=== PATIENT | female | born 1960 | race Caucasian/White ===

== ENCOUNTER 2020-11-29 10:41 | Emergency (ER) | payer MEDICAID ==
[~2020-11-29] VITALS: Ht 154.9 cm; Wt 85.5 kg
[~2020-11-29 10:41] MED LIST: AZIT250T PO
[2020-11-29 12:22] VITALS: BP 149/101
[2020-11-29] MEDS ORDERED: PRED50TA PO (13:44)
== END 2020-11-29 13:58 | disposition home or self-care (01) ==
LOC: ER 10:42
DX: J06.9 Acute upper respiratory infection, unspecified (principal); Z20.822 Contact with and (suspected) exposure to COVID-19; R05.9 Cough, unspecified; J44.9 Chronic obstructive pulmonary disease, unspecified; F32.9 Major depressive disorder, single episode, unspecified; F15.90 Other stimulant use, unspecified, uncomplicated; Z86.19 Personal history of other infectious and parasitic diseases; Z79.2 Long term (current) use of antibiotics; Z79.899 Other long term (current) drug therapy
CPT/HCPCS: 71045; 87635; 99284; C9803

== ENCOUNTER → 2023-07-23 | Outpatient (CLI) | payer MEDICAID ==
[~2023-07-23] MED LIST changes: +PRED50TA PO
== END | disposition home or self-care (01) ==
LOC: RAD 11:42
PROVIDERS: ATTEND Nurse Practitioner Family
DX: S30.1XXD Contusion of abdominal wall, subsequent encounter (principal); M79.9 Soft tissue disorder, unspecified; X58.XXXD Exposure to other specified factors, subsequent encounter
CPT/HCPCS: 76700